=== PATIENT | male | born 1965 | race Caucasian/White ===

== ENCOUNTER → 2017-05-28 | Day surgery (SDC) | payer BC ==
[~2017-05-28] MED LIST: Lactated Ringers 1,000 ML IV SCH; Propofol 200 MG/20 ML SDV IV ONE
[2017-05-28 12:02] VITALS: BP 110/73
--- NOTE | 2017-05-31 07:25 | OR ---
DATE OF OPERATION: 05/28/2017 PREOPERATIVE DIAGNOSIS: SCREENING COLONOSCOPY. POSTOPERATIVE DIAGNOSIS: SCREENING COLONOSCOPY. SURGEON: Flavio Butler MD PROCEDURE: FULL-LENGTH COLONOSCOPY WITH POLYP REMOVAL X2. ANESTHESIA: HAM DOCTOR. COMPLICATIONS: None. SPECIMEN: 2 small polyps well less than 0.5 cm. FINDINGS: 1. Full length colonoscopy. 2. Tubular adenoma x2. It is less than 0.5 cm. RECOMMENDATIONS: Followup colonoscopy in 5 years. INDICATIONS: The patient was in for routine physical. We recommended screening colonoscopy given the gentleman's age. DESCRIPTION OF PROCEDURE: The patient was prepped and draped, placed in the left lateral decubitus position. A lubricated Olympus colonoscope was inserted and easily advanced to the cecum. Direct visualization of the ileocecal valve and appendiceal orifice were accomplished. Bowel prep was adequate. What stool was present was liquid and easily suctioned. Cecum itself appeared benign. Upon withdrawal in the proximal ascending colon, the patient had a small flat hyperplastic/tubular adenoma polyp, removed in its entirety with 2 cold forceps biopsies. Resolution of bleeding was spontaneous. The rest of the ascending and transverse colon were completely benign. Descending colon was unremarkable. In the sigmoid area, there were no signs of any diverticula. There were no vascular abnormalities or signs of bleeding. No signs of colitis. Around 30 cm, the patient had another small flat tubular adenoma removed in its entirety with forceps biopsy x2. The rest of the sigmoid and rectosigmoid area looked unremarkable. The rectal vault was unremarkable. Retroflexion of the scope shows some perianal skin tags, otherwise benign. Air was then suctioned. Scope was removed without complications. PHIL/IVIS /[id number]
== END ==
LOC: CC.SDS 10:04
PROVIDERS: ATTEND Family Medicine
DX: Z12.11 Encounter for screening for malignant neoplasm of colon (principal); D12.2 Benign neoplasm of ascending colon; D12.5 Benign neoplasm of sigmoid colon; N40.0 Benign prostatic hyperplasia without lower urinary tract symptoms
CPT/HCPCS: 45380; 81001; J2704; J7120

== ENCOUNTER → 2021-03-07 | Day surgery (SDC) | payer BC ==
[~2021-03-07] MED LIST changes: +Ketamine 200 MG/20 ML MDV ONE; -Propofol 200 MG/20 ML SDV IV ONE; +Propofol 200 MG/20 ML SDV ONE; +fentaNYL 100 MCG/2 ML SDV ONE
[2021-03-07 08:36] LABS: CHLORIDE,CL 103 mEq/L (98-106); SODIUM,NA 140 mEq/L (136-145)
[2021-03-07 11:07] VITALS: BP 119/66; PULSE 72
--- NOTE | 2021-03-07 13:34 | OR ---
DATE OF OPERATION: 03/07/2021 PREOPERATIVE DIAGNOSIS: 1. GASTROESOPHAGEAL REFLUX DISEASE. 2. ALTERED BOWEL HABITS. 3. MELENIC STOOLS. POSTOPERATIVE DIAGNOSIS: 1. GASTROESOPHAGEAL REFLUX DISEASE. 2. ALTERED BOWEL HABITS. 3. MELENIC STOOLS. SURGEON: Flavio Butler MD PROCEDURE: 1. DIAGNOSTIC ESOPHAGOGASTRODUODENOSCOPY WITH BIOPSIES X2, CAIM. 2. FULL-LENGTH DIAGNOSTIC COLONOSCOPY WITH FORCEPS POLYP REMOVAL X1. ANESTHESIA: MAC. COMPLICATIONS: None. SPECIMEN: 1. Antral biopsy x1. 2. Antral CAMI. 3. Distal esophageal biopsy x1. 4. Small tubular adenomas, splenic flexure. FINDINGS: 1. Full-length diagnostic EGD. 2. Mild antral gastritis. 3. Spontaneous GERD with no definite esophagitis, stricturing, ulceration, or Mendes's changes. One small area of possible Mendes's was biopsied. 4. Full-length diagnostic colonoscopy. 5. Tubular adenoma, splenic flexure, approximately 4 mm. 6. Internal hemorrhoids. RECOMMENDATIONS: Ongoing medical followup. INDICATIONS: The patient has been having some ongoing issues with occasional heartburn. He had a short time of melenic stools and altered bowel habits. We elected to proceed with both upper and lower endoscopy. DESCRIPTION OF PROCEDURE: The patient was prepped and draped, placed in the left lateral decubitus position. A lubricated Olympus gastroscope was inserted, advanced to cricopharyngeus area, and easily intubated in the esophagus. Esophageal lining was benign. The Z-line was crisp and sharp. There was 1 small possible area of short-segment Mendes's which we did do a biopsy of. There was spontaneous reflux, but no signs of any distal esophagitis, stricturing, or ulceration. The scope was advanced into the stomach, through the pylorus, and into the second portion of the duodenum. This and the duodenal bulb were benign. The scope was brought back into the stomach and retroflexed. The upper fundus and cardia were unremarkable. Upon straightening, the rest of the fundus appeared benign, but the antrum had maybe some very mild active gastritis. We did do a biopsy and a CLOtest. No other masses were seen. Air was suctioned. The scope was removed without complication. A lubricated Olympus colonoscope was inserted and easily advanced to the cecum. Direct visualization of the ileocecal valve and appendiceal orifice was accomplished. The bowel prep was adequate. We did intubate briefly into the terminal ileum which was benign. Upon withdrawal, the cecum and ascending colon were unremarkable as was the transverse colon. At the splenic flexure, the patient had a small tubular adenoma, 3 to 4 mm, removed in its entirety with a forceps. The rest of the descending area was benign. Throughout the sigmoid and rectosigmoid region, I could find no polyps, masses, ulceration, or bleeding sites. No vascular abnormalities or signs of colitis. There were no diverticula. The rectal vault was benign. Retroflexion showed some perianal hemorrhoid disease, otherwise unremarkable. Air was then suctioned and the scope removed without complication. PHIL/IVIS /[id number]
== END ==
LOC: CC.SDS 07:50
PROVIDERS: ATTEND Family Medicine
DX: D12.3 Benign neoplasm of transverse colon (principal); K21.00 Gastro-esophageal reflux disease with esophagitis, without bleeding; K29.70 Gastritis, unspecified, without bleeding; K64.8 Other hemorrhoids; E78.5 Hyperlipidemia, unspecified
CPT/HCPCS: 00813; 36415; 80053; 80061; 81001; 84153; 84443; 85025; 87081; J2704; J3010; J7120

== ENCOUNTER 2025-08-11 14:31 | Emergency (ER) | payer BC ==
[2025-08-11] MEDS ORDERED: Sodium Chloride 0.9% 10 ML Syringe FLUSH PRN (15:04)
[2025-08-11] MEDS: Ketorolac 30 MG/ML SDV IVPUSH STA (15:10)
[2025-08-11 15:11] LABS: BASOPHILS ABSOLUTE AUTO 0.06 10^3/uL (0.00-0.50); BASOPHILS PERCENT AUTO 0.5 % (0-1); EOSINOPHILS ABSOLUTE AUTO 0.13 10^3/uL (0.00-1.50); EOSINOPHILS PERCENT AUTO 1.1 % (0-6); IMMATURE GRAN ABSOLUTE AUTO 0.05 10^3/uL (0.00-0.49); IMMATURE GRAN PERCENT AUTO 0.4 % (0.0-4.9); LYMPHOCYTES ABSOLUTE AUTO 1.21 10^3/uL (0.60-5.00); LYMPHOCYTES PERCENT AUTO 10.4 % (24-44); MONOCYTES ABSOLUTE AUTO 0.92 10^3/uL (0.00-1.50); MONOCYTES PERCENT AUTO 7.9 % (0-10); NEUTROPHILS ABSOLUTE AUTO 9.26 x10^3/uL (1.80-8.00); NEUTROPHILS PERCENT AUTO 79.7 % (41-71); PLATELET COUNT,PLT 271 10^3/uL (150-400); RED BLOOD CELL COUNT 4.97 x10^6/uL (4.50-6.00); WHITE BLOOD CELL COUNT,WBC 11.6 10^3/uL (4.0-11.0)
[2025-08-11 15:11] LABS: APPEARANCE,URINE CLEAR (CLEAR); GLUCOSE,URINE NEGATIVE (NEGATIVE); OCCULT BLOOD,URINE SMALL (NEGATIVE)
[2025-08-11 15:20] LABS: SQUAMOUS EPITHELIAL CELLS,UR OCCASIONAL /HPF (NOT SEEN)
[2025-08-11 15:23] LABS: ALANINE AMINOTRANSFERASE,ALT 45 U/L (12-78); ASPARTATE AMNIOTRANSFERASE,AST 27 U/L (15-37); BILIRUBIN TOTAL 1.1 mg/dL (0.0-1.0); BLOOD UREA NITROGEN,BUN 18 mg/dL (7-18); CARBON DIOXIDE,CO2 28 mmol/L (21-32); CHLORIDE,CL 100 mEq/L (98-106); CREATININE 1.6 mg/dL (0.7-1.3); EST CRCL DRUG DOSING (CG) 52.95 mL/min; GLUCOSE RANDOM 125 mg/dL (75-99); POTASSIUM,K 3.9 mEq/L (3.5-5.0); PROTEIN TOTAL,TP 7.1 g/dL (6.4-8.2); SODIUM,NA 138 mEq/L (136-145)
[2025-08-11 15:24] LABS: ESTIMATED GFR 49 mL/min (>=60)
[2025-08-11] MEDS: Iopamidol 755 Mg/ML 100 ML Bottle IVPUSH ONE (15:24)
[2025-08-11] MEDS: Take Home: Levofloxacin 500 MG Tab, 3 Tab Pack PO ONE (17:15)
[2025-08-11] MEDS: Take Home: Acetaminophen/HYDROcodone 325-5 MG, 2 Tab Pack PO ONE (17:16)
[2025-08-11 17:53] VITALS: BP 146/78; PULSE 71
== END 2025-08-11 17:57 | disposition home or self-care (01) ==
LOC: CC.ED 14:31
DX: N13.2 Hydronephrosis with renal and ureteral calculous obstruction (principal); N30.01 Acute cystitis with hematuria; R79.89 Other specified abnormal findings of blood chemistry
CPT/HCPCS: 36415; 74177; 80053; 81001; 83690; 85025; 86140; 96361; 96374; 96375; 99284; 99284-25; A9270-GY; J1171; J1885; J7030; Q9967

== ENCOUNTER 2025-09-05 09:56 | Day surgery (SDC) | payer BC ==
[2025-09-05] MEDS: Lactated Ringers 1,000 ML IV SCH (10:25)
[2025-09-05] MEDS ORDERED: Ketamine 200 MG/20 ML MDV ONE (10:57)
[2025-09-05] MEDS ORDERED: Propofol 200 MG/20 ML SDV ONE (10:57)
[2025-09-05] MEDS ORDERED: Midazolam 1 MG/ML 2 ML SDV ONE (10:57)
[2025-09-05] MEDS ORDERED: fentaNYL 50 MCG/ML SDV ONE (10:57)
[2025-09-05 12:37] VITALS: BP 110/64; PULSE 67
== END 2025-09-05 12:25 | disposition home or self-care (01) ==
LOC: CC.SDS 09:56
PROVIDERS: ATTEND Family Medicine
DX: D12.5 Benign neoplasm of sigmoid colon (principal); Z86.0101 Personal history of adenomatous and serrated colon polyps
CPT/HCPCS: 00811; J2250; J2704; J3010; J3490; J7120